=== PATIENT | female | born 1970 | race Two or more races ===

== ENCOUNTER 2023-12-09 08:22 | Inpatient (IN) | payer BC, OTHER ==
[~2023-12-09] VITALS: Ht 170.2 cm; Wt 98.5 kg
[2023-12-09] MEDS: VANCOMYCIN 1GM/200ML 200 ML IV ONE (10:38)
[2023-12-09 11:59] LABS: Eosinophils # (auto) 0.2 10 ^3/uL (0-0.8); Hematocrit 28.6 % (36.0-46.0); Lymphocytes # (auto) 1.9 10 ^3/uL (0.4-5.4); Monocytes # (auto) 0.6 10 ^3/uL (0-1.3)
[2023-12-09 12:01] LABS: Basophils # (auto) 0.1 10 ^3/uL (0-0.2); Basophils % (auto) 0.7 % (0.0-2.0); Eosinophils % (auto) 2.8 % (0.0-7.0); Hemoglobin 9.1 g/dL (12.2-16.2); Lymphocytes % (auto) 21.8 % (10.0-50.0); Mean Corpuscular Hemoglobin 24.9 pg (28.0-32.0); Mean Corpuscular Hgb Conc. 31.9 g/dL (32.0-36.0); Mean Corpuscular Volume 78.2 fL (80.0-100.0); Monocytes % (auto) 6.9 % (0.0-12.0); Neutrophils # (auto) 5.9 10 ^3/uL (1.6-8.6); Neutrophils % (auto) 67.8 % (37.0-80.0); Red Blood Cells 3.66 10^6/uL (4.0-5.20); White Blood Cell 8.7 10^3/uL (4.4-10.8)
[2023-12-09 12:06] LABS: Chloride 103 mmol/L (98-107); Potassium 4.5 mmol/L (3.5-5.1); Sodium 135 mmol/L (136-145)
[2023-12-09 12:07] LABS: Anion Gap 3 (5-15); Calcium 9.1 mg/dL (8.7-10.4); Carbon Dioxide 29 mmol/L (20-30)
[2023-12-09 12:12] LABS: BUN/Creatinine Ratio 22.4 (10.0-20.0); Blood Urea Nitrogen 15 mg/dL (9-23); Glucose 239 mg/dL (74-106)
[2023-12-09 12:19] LABS: INR 1.01 (0.9-1.15); Prothrombin Time 10.6 sec (9.3-11.8)
[2023-12-09] MEDS ORDERED: ONDANSETRON HCL 4 MG/2 ML VIAL IV PRN (13:00)
[2023-12-09] MEDS ORDERED: ACETAMINOPHEN 325 MG TAB PO PRN (13:00)
[2023-12-09] MEDS ORDERED: DOCUSATE SOD 100 MG CAP PO PRN (13:00)
[2023-12-09] MEDS ORDERED: DEXTROSE (50%) 50ML SYRG IV PRN (13:00)
[2023-12-09] MEDS ORDERED: METF-372 PO (13:13)
[2023-12-09] MEDS: SODIUM CHLORIDE 0.9% 1,000 ML IV ONE (13:50)
[2023-12-09] MEDS: SODIUM CHLOR 0.9% PF (SALINE LOCK) 10ML VIAL/SYR IV SCH (14:22)
[2023-12-09] MEDS: ACCU-CHEK COMFORT CURVE STRIP VI SCH (17:20)
[2023-12-09] MEDS: InsuLIN REG 1unit/0.01ml Soln (100units/ml) SC SCH ×2 (17:23→21:57)
[2023-12-09] MEDS: CEFEPIME 1GM/ 50ML 50 ML IV ONE (20:41)
[2023-12-09] MEDS: HYDROcodone-ACET 5/325MG TAB PO PRN (21:45)
[2023-12-09] MEDS: metroNIDAZOLE 500MG/100ML 100 ML IV SCH (21:46)
[2023-12-10 00:10] VITALS: BP 141/72; PULSE 92; RESP 18; TEMP 97.9; O2SAT 96
[2023-12-10 05:00] VITALS: BP 120/56; PULSE 80; RESP 16; TEMP 97.9; O2SAT 97
[2023-12-10 07:10] LABS: Basophils # (auto) 0.1 10 ^3/uL (0-0.2); Basophils % (auto) 0.7 % (0.0-2.0); Lymphocytes # (auto) 2.6 10 ^3/uL (0.4-5.4); Mean Corpuscular Volume 77.5 fL (80.0-100.0); Nucleated Red Blood Cells % 0.1 %
[2023-12-10 07:12] LABS: Eosinophils # (auto) 0.4 10 ^3/uL (0-0.8); Eosinophils % (auto) 3.5 % (0.0-7.0); Hematocrit 28.1 % (36.0-46.0); Hemoglobin 8.6 g/dL (12.2-16.2); Lymphocytes % (auto) 26.5 % (10.0-50.0); Mean Corpuscular Hemoglobin 23.8 pg (28.0-32.0); Mean Corpuscular Hgb Conc. 30.7 g/dL (32.0-36.0); Monocytes # (auto) 0.8 10 ^3/uL (0-1.3); Neutrophils # (auto) 6.1 10 ^3/uL (1.6-8.6); Neutrophils % (auto) 61.3 % (37.0-80.0); Red Blood Cells 3.63 10^6/uL (4.0-5.20); Red Cell Distribution Width 15.1 % (11.8-14.3); White Blood Cell 9.9 10^3/uL (4.4-10.8)
[2023-12-10] MEDS: CEFEPIME 1GM/ 50ML 50 ML IV SCH (07:18)
[2023-12-10 07:22] LABS: Alanine Aminotransferase 10 U/L (7-40); Albumin 3.1 g/dL (3.2-4.8); Alkaline Phosphatase 119 U/L (46-116); Anion Gap 6 (5-15); Aspartate Aminotransferase 13 U/L (13-40); Bilirubin, Total < 0.2 mg/dL (0.2-1.0); Blood Urea Nitrogen 20 mg/dL (9-23); Calcium 8.7 mg/dL (8.5-10.1); Carbon Dioxide 27 mmol/L (20-30); Chloride 108 mmol/L (98-107); Glucose 130 mg/dL (74-106); Potassium 4.2 mmol/L (3.5-5.1); Sodium 141 mmol/L (136-145); Total Protein 6.2 g/dL (5.7-8.2)
[2023-12-10 08:20] VITALS: PULSE 96; RESP 18; O2SAT 97
[2023-12-10 09:00] VITALS: BP 160/63; PULSE 96; RESP 18; TEMP 97.7; O2SAT 97
[2023-12-10] MEDS ORDERED: VANCOMYCIN PER PHARMACY 0 MG IV SCH (11:15)
[2023-12-10] MEDS: VANCOMYCIN 1GM/200ML 200 ML IV SCH (12:35)
[2023-12-10 13:00] VITALS: BP 150/72; PULSE 92; RESP 20; TEMP 97.5; O2SAT 100
[2023-12-10] MEDS: PIPERACILLIN-TAZOB 3.375GM 100 ML IV SCH (14:44)
[2023-12-10 17:00] VITALS: BP 144/72; PULSE 87; RESP 18; TEMP 98.1; O2SAT 97
[2023-12-11 05:00] VITALS: BP 109/52; PULSE 70; RESP 18; TEMP 98.4; O2SAT 98
[2023-12-11 08:30] VITALS: BP 106/49; PULSE 72; RESP 14; TEMP 98.7; O2SAT 96
[2023-12-11 09:00] VITALS: BP 106/49; PULSE 72; RESP 14; TEMP 98.7; O2SAT 96
[2023-12-11] MEDS ORDERED: PROPOFOL 10 MG/ML 20 ML IV ONE (11:41)
[2023-12-11] MEDS ORDERED: fentaNYL CITRATE 100 MCG/2 ML VL ONE (11:42)
[2023-12-11] MEDS: LIDOCAINE 1% (LOCAL ANESTH.) PF 5ml SDV ID ONE (11:45)
[2023-12-11] MEDS ORDERED: ePHEDrine SULFATE 50 MG/ML AMP ONE (12:31)
[2023-12-11] MEDS: ceFAZolin 1GM VL ONE (12:38)
[2023-12-11] MEDS: ROPIVACAINE 0.5% (5MG/ML) 20ML AMPULE IJ ONE (12:38)
[2023-12-11 13:09] VITALS: O2SAT 93
[2023-12-11] MEDS ORDERED: MEPERIDINE HCL (25 MG/ML) 1ML VIAL IV PRN (13:30)
[2023-12-11] MEDS ORDERED: ONDANSETRON HCL 4 MG/2 ML VIAL IV PRN (13:30)
[2023-12-11] MEDS ORDERED: HYDROmorphone HCL 2 MG/ML VL/or syr IV PRN (13:30)
[2023-12-11 17:00] VITALS: BP 156/74; PULSE 96; RESP 18; TEMP 98.3; O2SAT 96
[2023-12-11] MEDS: ceFAZolin 2 GM/D5W50ml 50 ML IV ONE (18:10)
[2023-12-11] MEDS: PIPERACILLIN-TAZOB 3.375GM 100 ML IV SCH (18:23)
[2023-12-11 22:00] VITALS: BP 151/70; PULSE 92; RESP 18; TEMP 98; O2SAT 97
[2023-12-11] MEDS: SODIUM CHLOR 0.9% PF (SALINE LOCK) 10ML VIAL/SYR IV SCH (22:57)
[2023-12-12] VITALS (7 sets, daily range): BP systolic 121–168; BP diastolic 68–93; PULSE 70–96; RESP 16–18; TEMP 98.1–99.1; O2SAT 95–98
[2023-12-12 17:32] LABS: COVID19 ANTIGEN SOFIA FIA NEGATIVE (NEGATIVE)
[2023-12-13] VITALS (7 sets, daily range): BP systolic 131–151; BP diastolic 56–79; PULSE 85–90; RESP 16–20; TEMP 97.4–99; O2SAT 94–99
[2023-12-13] MEDS: VANCOMYCIN 1GM/200ML 200 ML IV SCH (22:10)
[2023-12-14 05:00] VITALS: BP 150/67; PULSE 87; RESP 12; TEMP 98.4; O2SAT 95
[2023-12-14 05:07] LABS: Potassium 4.6 mmol/L (3.5-5.1)
[2023-12-14 05:08] LABS: Calcium 9.1 mg/dL (8.7-10.4)
[2023-12-14 05:13] LABS: BUN/Creatinine Ratio 27.1 (10.0-20.0)
[2023-12-14 05:15] LABS: Albumin 3.6 g/dL (3.2-4.8); Phosphorus 4.1 mg/dL (2.4-5.1)
[2023-12-14 08:10] VITALS: O2SAT 96
[2023-12-14 08:30] VITALS: BP 136/78; PULSE 89; RESP 20; TEMP 98.2; O2SAT 96
== END 2023-12-14 09:10 | DRG 617 ==
LOC: ER 08:22 → OVERFLOW 13:10 → CENTRAL 23:46
PROVIDERS: ADMIT Nurse Practitioner Family; ATTEND Family Medicine
PROC: 02HV33Z Insertion of Infusion Device into Superior Vena Cava, Percutaneous Approach (ICD-10-PCS; 2023-12-11)
PROC: B548ZZA Ultrasonography of Superior Vena Cava, Guidance (ICD-10-PCS; 2023-12-11)
PROC: 0Y6P0Z0 Detachment at Right 1st Toe, Complete, Open Approach (ICD-10-PCS; principal; 2023-12-11 12:22)
DX: E11.69 Type 2 diabetes mellitus with other specified complication (principal); E11.52 Type 2 diabetes mellitus with diabetic peripheral angiopathy with gangrene; M86.171 Other acute osteomyelitis, right ankle and foot; E44.0 Moderate protein-calorie malnutrition; L03.115 Cellulitis of right lower limb; I96 Gangrene, not elsewhere classified; I10 Essential (primary) hypertension; F17.210 Nicotine dependence, cigarettes, uncomplicated; E11.42 Type 2 diabetes mellitus with diabetic polyneuropathy; Z20.822 Contact with and (suspected) exposure to COVID-19; B95.62 Methicillin resistant Staphylococcus aureus infection as the cause of diseases classified elsewhere; E11.65 Type 2 diabetes mellitus with hyperglycemia; Z91.148 Patient's other noncompliance with medication regimen for other reason; Z98.84 Bariatric surgery status; Z82.49 Family history of ischemic heart disease and other diseases of the circulatory system; Z68.32 Body mass index [BMI] 32.0-32.9, adult
CPT/HCPCS: 36415; 36569; 71045; 73630; 73700; 80048; 80053; 80069; 80202; 82565; 82962; 83036; 85025; 85610; 87040; 87075; 87077; 87186; 87205; 87426; 93926; 93971; 97163; 99291; G0378; J0690; J1815; J2543; J2704; J3490